=== PATIENT | male | born 1990 | race Caucasian/White ===

== ENCOUNTER 2017-12-02 10:23 | Day surgery (SDC) | payer BC ==
[~2017-12-02 10:23] MED LIST: CEFAZOLIN 2 GM/50 ML (PMX) 50 ML IVPB; SOD CHLORIDE 0.9% 1,000 ML IV
[2017-12-02] MEDS: BUPIVACAINE 0.25% (MPF) 30 ML INJ (12:24)
[2017-12-02] MEDS ORDERED: MIDAZOLAM 1 MG/ML 2 ML INJ (12:51)
[2017-12-02] MEDS ORDERED: FENTAnyl 50 MCG/ML VIAL (12:51)
[2017-12-02] MEDS ORDERED: morphine 10 MG INJ (13:21)
[2017-12-02] MEDS ORDERED: LIDOCAINE 2% (SDV) 5 ML INJ (13:36)
[2017-12-02] MEDS ORDERED: PROPOFOL 20 ML (13:36)
[2017-12-02] MEDS ORDERED: ONDANSETRON 4 MG INJ (13:37)
[2017-12-02] MEDS ORDERED: CEFAZOLIN 1 GM INJ (13:37)
[2017-12-02] MEDS ORDERED: METOCLOPRAMIDE 10 MG INJ IV (14:00)
[2017-12-02] MEDS ORDERED: HYDROmorphONE (0.2 MG/ML) 10ML SYG IV ×2 (14:00)
[2017-12-02] MEDS ORDERED: FENTAnyl 50 MCG/ML VIAL IV (14:00)
[2017-12-02] MEDS ORDERED: DIPHENHYDRAMINE 50 MG INJ IV (14:00)
[2017-12-02] MEDS ORDERED: MEPERIDINE 25 MG INJ IV (14:00)
[2017-12-02] MEDS ORDERED: ONDANSETRON 4 MG INJ IV (14:00)
[2017-12-02] MEDS ORDERED: HYDROCODONE/APAP (5/325) TAB PO (14:30)
== END 2017-12-02 15:00 | disposition home or self-care (01) ==
LOC: SDS 10:23
DX: L72.0 Epidermal cyst (principal); L02.11 Cutaneous abscess of neck; I10 Essential (primary) hypertension; E66.01 Morbid (severe) obesity due to excess calories; Z68.41 Body mass index [BMI] 40.0-44.9, adult
CPT/HCPCS: 14041; 88307